=== PATIENT | female | born 1965 | race Caucasian/White ===

== ENCOUNTER 2017-12-24 16:25 | Emergency (ER) | payer SELFPAY ==
[2017-12-24] MEDS ORDERED: IBUPROFEN 400 MG TAB ONE (16:57)
--- NOTE | 2017-12-24 17:42 | ER ---
Nurse's Notes [facility] Name: Justine Wolf Age: 52 yrs Sex: Female : 1965 Arrival Date: 12/24/2017 Time: 16:31 Bed 15 Private MD: Diagnosis: Pain in unspecified foot-Right s/p fall Presentation: 12/24 16:31 Presenting complaint: Patient states: yesterday evening i rolled my R ankle and i fell; hj denies hitting head; took Motrin and Tylenol; last dose 7am; reports tingling on my R [place] area;. Transition of care: patient was not received from another setting of care. Onset of symptoms was December 24, 2017. Risk Assessment: Do you want to hurt yourself or someone else? Patient reports no desire to harm self or others. Initial Sepsis Screen: Does the patient meet any 2 criteria? No. Patient's initial sepsis screen is negative. Does the patient have a suspected source of infection? No. Patient's initial sepsis screen is negative. Care prior to arrival: None. 16:31 Method Of Arrival: Ambulatory 16:31 Acuity: LATESHA 4 hj Triage Assessment: 16:34 General: Appears in no apparent distress. uncomfortable, Behavior is calm, cooperative, hj appropriate for age. Pain: Complains of pain in right leg Pain currently is 9 out of 10 on a pain scale. OPTICIAN: 16:35 LMP N/A - Post-menopause hj Historical: - Allergies: 16:34 Codeine; hj - Home Meds: 16:34 None [Active]; hj - PMHx: 16:34 None; hj - PSHx: 16:34 Knee surgery; hj - Immunization history:: Adult Immunizations up to date. - Social history:: Smoking status: Patient uses tobacco products, smokes one-half pack cigarettes per day, Patient/guardian denies using alcohol. - Ebola Screening: : Patient negative for fever greater than or equal to 101.5 degrees Fahrenheit, and additional compatible Ebola Virus Disease symptoms Patient denies exposure to infectious person Patient denies travel to an Ebola-affected area in the 21 days before illness onset. Screenin:35 Abuse screen: Denies threats or abuse. Denies injuries from another. Nutritional hj screening: No deficits noted. Tuberculosis screening: No symptoms or risk factors identified. Fall Risk None identified. Assessment: 16:40 General: Appears in no apparent distress. Behavior is calm, cooperative, appropriate tw2 for age. Pain: Complains of pain in right ankle and anterior aspect of right ankle. Neuro: Level of Consciousness is awake, alert, obeys commands, Oriented to person, place, time, situation. Cardiovascular: Denies chest pain, shortness of breath, Patient's skin is warm and dry. Respiratory: Airway is patent Respiratory effort is even, unlabored, Respiratory pattern is regular, symmetrical. GI: No signs and/or symptoms were reported involving the gastrointestinal system. : EENT: No signs and/or symptoms were reported regarding the EENT system. Derm: Skin is intact, is healthy with good turgor, Skin temperature is warm. Musculoskeletal: Circulation, motion, and sensation intact. 17:27 Reassessment: Xray at bedside. sv 17:29 Reassessment: Patient appears in no apparent distress at this time. No changes from tw2 previously documented assessment. Patient and/or family updated on plan of care and expected duration. Pain level reassessed. Patient is alert, oriented x 3, equal unlabored respirations, skin warm/dry/pink. Vital Signs: 16:35 BP 123 / 81; Pulse 89; Resp 18; Temp 98.3(O); Pulse Ox 100% on R/A; Weight 63.5 kg; hj Height 5 ft. 9 in. (175.26 cm); Pain 9/10; 17:32 BP 113 / 69; Pulse 66; Resp 17; Pulse Ox 100% on R/A; tw2 16:35 Body Mass Index 20.67 (63.50 kg, 175.26 cm) ED Course: 16:31 Patient arrived in ED. hj 16:33 Triage completed. hj 16:35 Arm band placed on left wrist. hj 16:39 John Rene, RN is Primary Nurse. jl7 16:40 Roxana Fan, JEFF is Primary Nurse. tw2 16:40 Neo Hodgson PA is PHCP. cp 16:40 Neo Cartagena MD is Attending Physician. cp 16:48 Bed in low position. Call light in reach. Pulse ox on. NIBP on. tw2 16:48 No provider procedures requiring assistance completed. tw2 17:30 X-ray completed. Portable x-ray completed in exam room. Patient tolerated procedure bb2 well. 17:30 XRAY Foot RIGHT 3 View In Process Unspecified. EDMS 17:35 Patient did not have IV access during this emergency room visit. Merlin wrap to right tw2 ankle. Administered Medications: 16:56 Drug: Ibuprofen 800 mg Route: PO; tw2 17:38 Follow up: Response: No adverse reaction tw2 Outcome: 17:42 Discharge ordered by MD. cp 17:46 Discharged to home via wheelchair. tw2 17:46 Condition: stable 17:46 Discharge instructions given to patient, Instructed on discharge instructions, follow up and referral plans. Demonstrated understanding of instructions, follow-up care, Prescriptions given X 1. 17:49 Patient left the ED. tw2 Signatures: Dispatcher [employer] Livia Cherry RN RN Jay Jay Chaparro RN RN Neo Liu, Roxana Ochoa cp, RN RN tw2 John Rene RN RN jl7 Elizabeth Freitas bb2
--- NOTE | 2017-12-24 17:42 | EDPHYS ---
Physician Documentation [facility] Name: Justine Wolf Age: 52 yrs Sex: Female : 1965 Arrival Date: 12/24/2017 Time: 16:31 Bed 15 Private MD: ED Physician Neo Cartagena HPI: 12/24 16:53 This 52 yrs old Female presents to ER via Ambulatory with complaints of R cp foot pain. 16:53 The patient presents with an injury, pain, that is acute. The complaints affect the cp right foot. Context: Mechanism of Injury: twisting the patient can partially bear weight. Onset: The symptoms/episode began/occurred yesterday. 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 - Social history:: Smoking status: Patient uses tobacco products, smokes one-half pack cigarettes per day, Patient/guardian denies using alcohol. - Ebola Screening: : Patient negative for fever greater than or equal to 101.5 degrees Fahrenheit, and additional compatible Ebola Virus Disease symptoms Patient denies exposure to infectious person Patient denies travel to an Ebola-affected area in the 21 days before illness onset. ROS: 17:00 MS/extremity: Positive for injury or acute deformity, pain, of the right foot, Negative cp for paresthesias. 17:00 Constitutional: Negative for body aches, chills, fever, poor PO intake. 17:00 All other systems are negative. Exam: 17:05 Constitutional: The patient appears in no acute distress, alert, awake, cp non-diaphoretic, well developed, well nourished. 17:05 Head/Face: Normocephalic, atraumatic. cp 17:05 Eyes: Periorbital structures: appear normal, Conjunctiva: normal, no exudate, no injection, Lids and lashes: appear normal, bilaterally. 17:05 ENT: External ear(s): are unremarkable, Nose: is normal, Mouth: is normal, Posterior pharynx: is normal, airway is patent. 17:05 Chest/axilla: Inspection: normal. 17:05 Cardiovascular: Rate: normal, Rhythm: regular. 17:05 Respiratory: the patient does not display signs of respiratory distress, Respirations: normal, no use of accessory muscles, no retractions, no splinting, no tachypnea, labored breathing, is not present. 17:05 Abdomen/GI: Exam negative for discomfort, distension, guarding, Inspection: abdomen appears normal. 17:05 Back: pain, is absent, ROM is normal. cp 17:05 Musculoskeletal/extremity: Extremities: grossly normal except: noted in the lateral mid foot: pain, tenderness, mild swelling, There is no evidence of deformity, Pulses: noted to be 2+ in the right dorsalis pedis artery, Sensation intact. 17:05 Musculoskeletal/extremity: Achilles tendon palpated and intact, no tenderness palpated at ankle or proximal fibula. 17:05 Skin: cellulitis, is not appreciated, no rash present. Vital Signs: 16:35 BP 123 / 81; Pulse 89; Resp 18; Temp 98.3(O); Pulse Ox 100% on R/A; Weight 63.5 kg; hj Height 5 ft. 9 in. (175.26 cm); Pain 9/10; 17:32 BP 113 / 69; Pulse 66; Resp 17; Pulse Ox 100% on R/A; tw2 16:35 Body Mass Index 20.67 (63.50 kg, 175.26 cm) hj MDM: 16:41 Patient medically screened. cp 17:40 Data reviewed: vital signs, nurses notes, radiologic studies, plain films. cp 17:40 Differential diagnosis: fracture, sprain, dislocation. Test interpretation: by ED cp physician or midlevel provider: plain radiologic studies. Counseling: I had a detailed discussion with the patient and/or guardian regarding: the historical points, exam findings, and any diagnostic results supporting the discharge/admit diagnosis, radiology results, to return to the emergency department if symptoms worsen or persist or if there are any questions or concerns that arise at home. 12/24 16:53 Order name: XRAY Foot RIGHT 3 View; Complete Time: 17:44 cp 12/24 17:44 Interpretation: Report reviewed. 12/24 17:34 Order name: Merlin Wrap; Complete Time: 17:37 cp Administered Medications: 16:56 Drug: Ibuprofen 800 mg Route: PO; tw2 17:38 Follow up: Response: No adverse reaction tw2 Disposition: 18:00 Chart complete. cp 12/25 06:53 Co-signature as Attending Physician, Neo Cartagena MD I agree with the assessment and [facility] plan of care. Disposition: 12/24/17 17:42 Discharged to Home. Impression: Pain in unspecified foot - Right s/p fall. - Condition is Stable. - Discharge Instructions: Foot Sprain. - Prescriptions for Naprosyn 500 mg Oral Tablet - take 1 tablet by ORAL route 2 times per day take with food; 20 tablet. - Work release form, Medication Reconciliation Form, Thank You Letter, Antibiotic Education, Prescription Opioid Use form. - Follow up: Private Physician; When: 5 - 6 days; Reason: Recheck today's complaints. - Problem is new. - Symptoms have improved. Signatures: Dispatcher [employer] Neo Ennis MD MD cha Joaquin, Henry, RN RN Neo Hodgson PA PA cp Wise, Tara RN RN tw2 Corrections: (The following items were deleted from the chart) 12/24 17:37 17:35 Crutches ordered. cp tw2 17:37 17:35 Ortho shoe ordered. cp tw2 17:49 17:42 12/24/2017 17:42 Discharged to Home. Impression: Pain in unspecified foot - Right tw2 s/p fall. Condition is Stable. Forms are Work release form, Medication Reconciliation Form, Thank You Letter, Antibiotic Education, Prescription Opioid Use. Follow up: Private Physician; When: 5 - 6 days; Reason: Recheck today's complaints. Problem is new. Symptoms have improved. cp
--- NOTE | 2017-12-24 17:43 | RAD REPORT ---
EXAM DESCRIPTION: RAD - Foot Right 3 View - 12/24/2017 5:33 pm CLINICAL HISTORY: Ankle and foot pain, twisting injury COMPARISON: September 2010 FINDINGS: No fracture, dislocation or periosteal reaction. Faint lucent line in the cuboid bone seen only on the lateral view is unlikely to be fracture. No acute or destructive bone process. No air or foreign body in the soft tissues. IMPRESSION: No fracture confirmed on this study. Faint lucent line in the cuboid bone is seen on onl y one view. Acute fracture is doubtful. Follow-up imaging in 7 days could be performed if the patient has continued symptoms concerning for f racture.
== END 2017-12-24 17:49 | disposition home or self-care (01) ==
LOC: ER 16:25
DX: M79.671 Pain in right foot (principal); Z88.6 Allergy status to analgesic agent; F17.210 Nicotine dependence, cigarettes, uncomplicated
CPT/HCPCS: 99284

== ENCOUNTER 2025-04-16 19:43 | Emergency (ER) | payer OTHER ==
--- OUTSIDE RECORDS SUMMARY | 2025-04-16 19:48 | XMS REPORT | Continuity of Care Document ---
Author Name Unknown Address [address] [facility] [address] [place] [address] [facility] Address [address] [facility] [address] [place] [address] Care Team Providers Care Car Rider Name Role Phone Bertha Garcia Primary Care Physician Casper Suazo Attending Clinician Unavailable SHAKEEL MONGE Attending Clinician Unava SARAH Agosto Attending Clinician Unavailable SHAKEEL MONGE Attending Clinician Unava ilZULEMA Vinson Attending Clinician Unava ilmary kay MOORE_TFCLLC_Anthony_Waldo Attending Clinician UnavailSARAH Mott Attending Clinician Unavailable HUMZA BEJARANO Attending Clinician Unavailable KG TATE Attending Clinician Unav ailRichelle Vail Attending Clinician [phone] Denia Ortega MA Attending Clinician William Palm MD, Provider Not In Attending Clinician U Placido Choi MA Attending Clinician Unavailable Zulema Botello MD Attending Clinician DAJA EARL Attending Clinician William flowers [email or web address] Admitting Clinician SARAH Le Admitting Clinician Unavailable SARAH AMOS Admitting Clinician Unavailable Payers Payer Name Policy Type Policy Number Effective Date Expirati on Date Source [facility] PL[facility] CHIP [id number] 2020 00:00:00 2021 00:00:00 [facility] PL[facility] STAR [id number] 2021 00:00:00 [facility] [id number] 2023 00:00:00 [facility] [place]MED[place]PLAC[place] [id number] Problems Condition Name Condition Details Condition Category Status Onset Date Resolution Date Last Treatment Date Treating Clinician Comments Source Acquired nasal septal defect (disorder) Acquired nasal septal defect (disorder) Active 03/02/2023 Diagnosis 03/09/2023 [facility] Diagnosis Active 8 00:00: 00 2023-03-09 23:38:21 Cathy Wang OPEN WOUND INVOLVING HEAD WITH NECK, COM OPEN WOUND INVOLVING HEAD WITH NECK, COM Active 02/08/2023 [facility] Diagnosis Active 8- 00:00: 00 2023-03-08 13:21:00 Cathy Wang Herpes zoster Herpes Zoster Problem Active 4- 00:00: 00 [facility] Acute bronchitis Acute Bronchitis Problem Active 4-12 00:00: 00 [facility] Allergic rhinitis Allergic Rhinitis Problem Active 4-12 00:00: 00 [facility] Non-bullou s impetigo Non-bullou s Impetigo Problem Active 4-12 00:00: 00 [facility] Medication monitoring Medication Monitoring Problem Active 4-12 00:00: 00 [facility] Cellulitis of left lower eyelid Cellulitis of Left Lower Eyelid Problem Active 4-12 00:00: 00 [facility] Nasal obstructio n Nasal obstructio n Disease Active 1-19 00:00: 00 [facility] Muscular atrophy Muscular atrophy Disease Active 9-08 00:00: 00 [facility] Open wound of nose without complicati on Open wound of nose without complicati on Disease Active 4-07 00:00: 00 [facility] Contusion of rib Contusion of Rib Problem Active 2-22 00:00: 00 [facility] 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) Active Problem 03/09/2023 [facility] Problem Active 2023-03-09 23:38:21 Cathy Wang 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) Active Problem 03/09/2023 [facility] Problem Active 2023-03-09 23:38:21 Cathy Wang [id number] History of SCC (squamous cell carcinoma) of skin Problem [facility] [id number] Mixed hyperlipid emia Problem [facility] [id number] Smoker Problem [facility] [id number] Mood disorder Problem [facility] History of Past Illness Condition Name Condition Details Condition Category Status Onset Date Resolution Date Last Treatment Date Treating Clinician Comments Source Malignant neoplasm of skin of face (disorder) Malignant neoplasm of skin of face (disorder) 03/02/2023 Diagnosis 03/09/2023 [facility] Diagnosis 2022-0 8-25 17:39: 00 2023-03-09 23:38:21 2023-03-09 23:38:21 Cathy Wang Disease of the nose (disorder) Disease of the nose (disorder) 03/02/2023 Diagnosis 03/09/2023 [facility] Diagnosis 2022-0 8-25 17:39: 00 2023-03-09 23:38:21 2023-03-09 23:38:21 Cathy Wang Allergies, Adverse Reactions, Alerts Allergy Name Allergy Type Status Severity Reaction(s) Onset Date Inactive Date Treating Clinician Comments Source Penicill in G Allergy to substanc e Active 9-30 00:00: 00 [facility] hydrocod one hydrocod one Active Unknown [facility] codeine codeine Active [facility] Social History Social Habit Start Date Stop Date Quantity Comments Source History of Tobacco Use Current Smoker [facility] Sex Assigned At [facility] History SDOH Alcohol Std Drinks [facility] History SDOH Alcohol Binge [facility] History SDOH Alcohol Comment [facility] Sexual orientation [facility] History of Social function 2023-06-14 00:00:00 2023-06-14 00:00:00 [facility] Exposure to SARS-CoV-2 (event) 2022-09-08 00:00:00 2022-09-18 11:38:00 Not sure [facility] Cigarette pack-years 2021-12-15 00:00:00 2021-12-15 00:00:00 [facility] Tobacco use and exposure 2021-12-15 00:00:00 2021-12-15 00:00:00 Smokeless tobacco non-user [facility] Alcohol intake 2021-05-19 00:00:00 2021-05-19 00:00:00 Lifetime non-drinker (finding) [facility] History SDOH Alcohol Frequency 2021-04-18 00:00:00 2021-04-18 00:00:00 1 [facility] Smoking Status Start Date Stop Date Source Current Smoker 2025-01-20 00:00:00 [facility] Tobacco smoking status 2023-02-16 16:07:47 2023-02-16 16:07:47 [facility] Medications Ordered Medication Name Filled Medication Name Start Date Stop Date Current Medication? Ordering Clinician Indication Dosage Frequency Signature (SIG) Comments Components Source DULoxetine HCl 30 MG DULoxetine HCl 30 MG 01-20 00:00: 00 No 1{capsu le} QD DULoxetine HCl 30 MG traZODone HCl 50 MG traZODone HCl 50 MG 3-13 00:00: 00 No 1{table t_at_be dtime_a s_neede d} QD traZODone HCl 50 MG ibuprofen 800 MG tablet 2022-07 13:36: 18 Yes 800mg Q6H Take 800 mg by mouth every 6 (six) hours if needed for mild pain. [facility] pentoxifyll ine (Trental) 400 MG ER tablet 03-15 00:00: 00 03-21 04:59 :00 No [id number] 400mg Take 1 tablet (400 mg total) by mouth in the morning and 1 tablet (400 mg total) at noon and 1 tablet (400 mg total) in the evening. Take with meals. Do all this for 5 days. Do not crush, chew, or split.. [facility] buPROPion SR (Wellbutrin SR) 100 MG 12 hr tablet 2021-07 00:00: 00 03-19 00:00 :00 No [facility] diphenhydrA MINE (BENADryl) 25 MG tablet 02-09 09:42: 13 Yes Take by mouth. [facility] acetaminoph en (Tylenol) 500 MG tablet 02-09 09:42: 13 Yes Q6H Take by mouth every 6 (six) hours if needed for mild pain. [facility] pseudoephed rine (Sudafed) 60 MG tablet 02-09 09:40: 55 02-09 00:00 :00 No 60mg Take 60 mg by mouth every 4 (four) hours if needed for congestion . [facility] pseudoephed rine (Sudafed) 60 MG tablet 12-15 10:08: 51 Yes 60mg Take 60 mg by mouth every 4 (four) hours if needed for congestion . [facility] acetaminoph en-codeine (Tylenol w/ Codeine #4) 300-60 MG tablet 10-13 09:53: 35 10-13 00:00 :00 No Take by mouth. [facility] naproxen (Naprosyn) 500 MG tablet 08-29 11:32: 41 08-29 00:00 :00 No 500mg Take 500 mg by mouth 2 (two) times a day with meals. [facility] buPROPion (Wellbutrin ) 100 MG tablet 08-29 11:32: 28 08-29 00:00 :00 No Q.5D Take by mouth 2 (two) times a day. [facility] buPROPion (Wellbutrin ) 100 MG tablet 2020-07 10:19: 18 Yes Q.5D Take by mouth 2 (two) times a day. [facility] naproxen (Naprosyn) 500 MG tablet 2020-07 10:19: 18 Yes 500mg Take 500 mg by mouth 2 (two) times a day with meals. [facility] acetaminoph en-codeine (Tylenol w/ Codeine #4) 300-60 MG tablet 2020-07 10:19: 17 Yes Take by mouth. [facility] buPROPion (Wellbutrin ) 100 MG tablet 2020-07 13:29: 32 Yes Q.5D Take by mouth 2 (two) times a day. [facility] naproxen (Naprosyn) 500 MG tablet 2020-07 13:29: 32 Yes 500mg Take 500 mg by mouth 2 (two) times a day with meals. [facility] bacitracin 500 UNIT/GM ointment 2020-07 0 00:00: 00 08-29 00:00 :00 No [id number] Q.5D Apply topically 2 (two) times a day. [facility] No known medications 04-07 13:29: 19 No No known medication s [facility] mupirocin (Bactroban Nasal) 2 % nasal ointment 04-07 00:00: 00 04-15 04:59 :00 No [id number] Q.5D Apply to each nostril 2 (two) times a day for 7 days. Use one-half of tube in each nostril twice daily for five (5) days. After applicatio n, press sides of nose together and gently massage. [facility] acetaminoph en 325 mg tablet TAKE 2 TABLETS BY MOUTH EVERY 4 HOURS NEEDED FOR PAIN FOR 10 DAYS acetaminoph en 325 mg tablet TAKE 2 TABLETS BY MOUTH EVERY 4 HOURS NEEDED FOR PAIN FOR 10 DAYS No acetaminop hen 325 mg tablet TAKE 2 TABLETS BY MOUTH EVERY 4 HOURS NEEDED FOR PAIN FOR 10 DAYS [facility] amoxicillin 500 mg capsule TAKE 1 CAPSULE BY MOUTH THREE TIMES DAILY FOR 15 DAYS amoxicillin 500 mg capsule TAKE 1 CAPSULE BY MOUTH THREE TIMES DAILY FOR 15 DAYS No amoxicilli n 500 mg capsule TAKE 1 CAPSULE BY MOUTH THREE TIMES DAILY FOR 15 DAYS [facility] cephalexin 500 mg capsule TAKE 1 CAPSULE BY MOUTH TWICE DAILY FOR 14 DAYS cephalexin 500 mg capsule TAKE 1 CAPSULE BY MOUTH TWICE DAILY FOR 14 DAYS No cephalexin 500 mg capsule TAKE 1 CAPSULE BY MOUTH TWICE DAILY FOR 14 DAYS [facility] fluticasone propionate 50 mcg/actuati on nasal spray,suspe nsion USE ONE SPRAY IN EACH NOSTRIL ONCE A DAY fluticasone propionate 50 mcg/actuati on nasal spray,suspe nsion USE ONE SPRAY IN EACH NOSTRIL ONCE A DAY No fluticason e propionate 50 mcg/actuat ion nasal spray,susp ension USE ONE SPRAY IN EACH NOSTRIL ONCE A DAY [facility] gabapentin 100 mg capsule gabapentin 100 mg capsule No gabapentin 100 mg capsule [facility] hydrocodone 7.5 mg-acetamin ophen 325 mg tablet TAKE 1 TABLET BY MOUTH EVERY 6 HOURS FOR 15 DAYS NEEDED FOR PAIN hydrocodone 7.5 mg-acetamin ophen 325 mg tablet TAKE 1 TABLET BY MOUTH EVERY 6 HOURS FOR 15 DAYS NEEDED FOR PAIN No hydrocodon e 7.5 mg-acetami nophen 325 mg tablet TAKE 1 TABLET BY MOUTH EVERY 6 HOURS FOR 15 DAYS NEEDED FOR PAIN [facility] hydroxyzine HCl 25 mg tablet TAKE 1 TABLET BY MOUTH THREE TIMES DAILY hydroxyzine HCl 25 mg tablet TAKE 1 TABLET BY MOUTH THREE TIMES DAILY No hydroxyzin e HCl 25 mg tablet TAKE 1 TABLET BY MOUTH THREE TIMES DAILY [facility] lidocaine 4 % topical patch Apply 1 patch every 12 hours by topical route as needed. lidocaine 4 % topical patch Apply 1 patch every 12 hours by topical route as needed. No 1patch( es) Q12H lidocaine 4 % topical patch Apply 1 patch every 12 hours by topical route as needed. [facility] naproxen 500 mg tablet,shayne yed release TAKE ONE TABLET TWICE DAILY NEEDED FOR PAIN naproxen 500 mg tablet,shayne yed release TAKE ONE TABLET TWICE DAILY NEEDED FOR PAIN No naproxen 500 mg tablet,del ayed release TAKE ONE TABLET TWICE DAILY NEEDED FOR PAIN [facility] SSD 1 % topical cream APPLY TOPICALLY TO THE AFFECTED AREA THREE TIMES DAILY SSD 1 % topical cream APPLY TOPICALLY TO THE AFFECTED AREA THREE TIMES DAILY No SSD 1 % topical cream APPLY TOPICALLY TO THE AFFECTED AREA THREE TIMES DAILY [facility] acetaminoph en 325 mg tablet TAKE 2 TABLETS BY MOUTH EVERY 4 HOURS NEEDED FOR PAIN FOR 10 DAYS acetaminoph en 325 mg tablet TAKE 2 TABLETS BY MOUTH EVERY 4 HOURS NEEDED FOR PAIN FOR 10 DAYS No acetaminop hen 325 mg tablet TAKE 2 TABLETS BY MOUTH EVERY 4 HOURS NEEDED FOR PAIN FOR 10 DAYS [facility] amoxicillin 500 mg capsule TAKE 1 CAPSULE BY MOUTH THREE TIMES DAILY FOR 15 DAYS amoxicillin 500 mg capsule TAKE 1 CAPSULE BY MOUTH THREE TIMES DAILY FOR 15 DAYS No amoxicilli n 500 mg capsule TAKE 1 CAPSULE BY MOUTH THREE TIMES DAILY FOR 15 DAYS [facility] Augmentin 875 mg-125 mg tablet Take 1 tablet every 12 hours by oral route for 10 days. Augmentin 875 mg-125 mg tablet Take 1 tablet every 12 hours by oral route for 10 days. No 1 Q12H Augmentin 875 mg-125 mg tablet Take 1 tablet every 12 hours by oral route for 10 days. [facility] benzonatate 200 mg capsule Take 1 capsule 3 times a day by oral route for 5 days. benzonatate 200 mg capsule Take 1 capsule 3 times a day by oral route for 5 days. No 1capsul e(s) TID benzonatat e 200 mg capsule Take 1 capsule 3 times a day by oral route for 5 days. [facility] cephalexin 500 mg capsule TAKE 1 CAPSULE BY MOUTH TWICE DAILY FOR 14 DAYS cephalexin 500 mg capsule TAKE 1 CAPSULE BY MOUTH TWICE DAILY FOR 14 DAYS No cephalexin 500 mg capsule TAKE 1 CAPSULE BY MOUTH TWICE DAILY FOR 14 DAYS [facility] diclofenac potassium 50 mg tablet TAKE 1 TABLET BY MOUTH THREE TIMES DAILY diclofenac potassium 50 mg tablet TAKE 1 TABLET BY MOUTH THREE TIMES DAILY No diclofenac potassium 50 mg tablet TAKE 1 TABLET BY MOUTH THREE TIMES DAILY [facility] fluticasone propionate 50 mcg/actuati on nasal spray,suspe nsion [facility] 2 sprays every day by intranasal route. fluticasone propionate 50 mcg/actuati on nasal spray,suspe nsion [facility] 2 sprays every day by intranasal route. No 2spray( s) Q1D fluticason e propionate 50 mcg/actuat ion nasal spray,susp ension [facility] 2 sprays every day by intranasal route. [facility] gabapentin 100 mg capsule gabapentin 100 mg capsule No gabapentin 100 mg capsule [facility] hydrocodone 5 mg-acetamin ophen 325 mg tablet TAKE 1 TABLET BY MOUTH EVERY 6 HOURS FOR UP TO 5 DAYS NEEDED FOR SEVERE PAIN hydrocodone 5 mg-acetamin ophen 325 mg tablet TAKE 1 TABLET BY MOUTH EVERY 6 HOURS FOR UP TO 5 DAYS NEEDED FOR SEVERE PAIN No hydrocodon e 5 mg-acetami nophen 325 mg tablet TAKE 1 TABLET BY MOUTH EVERY 6 HOURS FOR UP TO 5 DAYS NEEDED FOR SEVERE PAIN [facility] hydrocodone 7.5 mg-acetamin ophen 325 mg tablet TAKE 1 TABLET BY MOUTH EVERY 6 HOURS FOR 15 DAYS NEEDED FOR PAIN hydrocodone 7.5 mg-acetamin ophen 325 mg tablet TAKE 1 TABLET BY MOUTH EVERY 6 HOURS FOR 15 DAYS NEEDED FOR PAIN No hydrocodon e 7.5 mg-acetami nophen 325 mg tablet TAKE 1 TABLET BY MOUTH EVERY 6 HOURS FOR 15 DAYS NEEDED FOR PAIN [facility] hydroxyzine HCl 25 mg tablet TAKE 1 TABLET BY MOUTH THREE TIMES DAILY hydroxyzine HCl 25 mg tablet TAKE 1 TABLET BY MOUTH THREE TIMES DAILY No hydroxyzin e HCl 25 mg tablet TAKE 1 TABLET BY MOUTH THREE TIMES DAILY [facility] levofloxaci n 500 mg tablet levofloxaci n 500 mg tablet No levofloxac in 500 mg tablet [facility] lidocaine 4 % topical patch Apply 1 patch every 12 hours by topical route as needed. lidocaine 4 % topical patch Apply 1 patch every 12 hours by topical route as needed. No 1patch( es) Q12H lidocaine 4 % topical patch Apply 1 patch every 12 hours by topical route as needed. [facility] Medrol (Yamil) 4 mg tablets in a dose pack Take as directed on pack Medrol (Yamil) 4 mg tablets in a dose pack Take as directed on pack No Medrol (Yamil) 4 mg tablets in a dose pack Take as directed on pack [facility] mupirocin 2 % topical ointment APPLY A SMALL AMOUNT TO RASH ON SCAR AND HAIRLINE AREA BY TOPICAL ROUTE 3 TIMES PER DAY mupirocin 2 % topical ointment APPLY A SMALL AMOUNT TO RASH ON SCAR AND HAIRLINE AREA BY TOPICAL ROUTE 3 TIMES PER DAY No mupirocin 2 % topical ointment APPLY A SMALL AMOUNT TO RASH ON SCAR AND HAIRLINE AREA BY TOPICAL ROUTE 3 TIMES PER DAY [facility] naproxen 500 mg tablet,shayne yed release TAKE ONE TABLET TWICE DAILY NEEDED FOR PAIN naproxen 500 mg tablet,shayne yed release TAKE ONE TABLET TWICE DAILY NEEDED FOR PAIN No naproxen 500 mg tablet,del ayed release TAKE ONE TABLET TWICE DAILY NEEDED FOR PAIN [facility] SSD 1 % topical cream APPLY TOPICALLY TO THE AFFECTED AREA THREE TIMES DAILY SSD 1 % topical cream APPLY TOPICALLY TO THE AFFECTED AREA THREE TIMES DAILY No SSD 1 % topical cream APPLY TOPICALLY TO THE AFFECTED AREA THREE TIMES DAILY [facility] sulfamethox azole 800 mg-trimetho prim 160 mg tablet TAKE 1 TABLET BY MOUTH TWICE DAILY sulfamethox azole 800 mg-trimetho prim 160 mg tablet TAKE 1 TABLET BY MOUTH TWICE DAILY No sulfametho xazole 800 mg-trimeth oprim 160 mg tablet TAKE 1 TABLET BY MOUTH TWICE DAILY [facility] valacyclovi r 1 gram tablet Take 1 tablet every 8 hours by oral route for 7 days. valacyclovi r 1 gram tablet Take 1 tablet every 8 hours by oral route for 7 days. No 1 Q8H valacyclov ir 1 gram tablet Take 1 tablet every 8 hours by oral route for [address] [facility] Immunizations Ordered Immunization Name Filled Immunization Name Date Status Comments Source Prevnar 20 (PCV20) Prevnar 20 (PCV20) Unknown Completed [facility] Vital Signs Vital Name Observation Time Observation Value Comments S [facility] height 2025-01-20 16:30:00 69 [in_i] Commo n [facility] weight 2025-01-20 16:30:00 129 [lb_av] Comm on [facility] temperature 2025-01-20 16:30:00 97.6 [degF] Com [facility] bmi 2025-01-20 16:30:00 19.05 kg/m2 Comm on [facility] oximetry 2025-01-20 16:30:00 96 % Commo n [facility] respiratory rate 2025-01-20 16:30:00 16 /min [facility] blood pressure systolic 2025-01-20 16:30:00 124 mm[facility]Hg[facility] diastolic 2025-01-20 16:30:00 72 mm[Hg] [facility] height 2024-10-27 15:30:00 69 [in_i] Commo n [facility] weight 2024-10-27 15:30:00 130.8 [lb_av] Co mmon [facility] temperature 2024-10-27 15:30:00 97.2 [degF] Com mon [facility] bmi 2024-10-27 15:30:00 19.31 kg/m2 Comm on [facility] oximetry 2024-10-27 15:30:00 95 % Commo n [facility] blood pressure systolic 2024-10-27 15:30:00 94 mm[Hg] Common [facility] blood pressure diastolic 2024-10-27 15:30:00 47 mm[Hg] Common [facility] height 2024-09-18 15:00:00 69 [in_i] Commo n [facility] weight 2024-09-18 15:00:00 131 [lb_av] Comm on [facility] temperature 2024-09-18 15:00:00 97.9 [degF] Com mon [facility] bmi 2024-09-18 15:00:00 19.34 kg/m2 Comm on [facility] oximetry 2024-09-18 15:00:00 96 % Commo n [facility] blood pressure systolic 2024-09-18 15:00:00 96 mm[Hg] Common [facility] blood pressure diastolic 2024-09-18 15:00:00 49 mm[Hg] Common [facility] Body height 2023-06-14 20:47:00 [facility] Body weight 2023-06-14 20:47:00 58.968 [facility] BMI 2023-06-14 20:47:00 19.20 kg/m2 [facility] Body height 2023-05-14 19:33:00 175.3 cm [facility] Body weight 2023-05-14 19:33:00 58.968 [facility] BMI 2023-05-14 19:33:00 19.20 kg/m2 [facility] Body height 2023-03-29 20:21:00 175.3 cm [facility] Body weight 2023-03-29 20:21:00 58.968 [facility] BMI 2023-03-29 20:21:00 19.20 kg/m2 [facility] Body height 2023-03-19 20:11:00 175.3 cm [facility] Body weight 2023-03-19 20:11:00 58.968 [facility] BMI 2023-03-19 20:11:00 19.20 kg/m2 [facility] Body height 2023-03-15 19:51:00 175.3 cm [facility] Body weight 2023-03-15 19:51:00 58.968 [facility] BMI 2023-03-15 19:51:00 19.20 kg/m2 [facility] Body height 2023-02-08 15:51:00 175.3 cm [facility] Body weight 2023-02-08 15:51:00 58.968 [facility] BMI 2023-02-08 15:51:00 19.20 kg/m2 [facility] BP Diastolic 2022-10-18 00:00:00 70 mm[Hg] [facility] Height 2022-10-18 00:00:00 69 [in_i] [facility] BMI (Body Mass Index) 2022-10-18 00:00:00 18 kg/m2 [facility] BP Systolic 2022-10-18 00:00:00 144 mm[Hg] [facility] Body Weight 2022-10-18 00:00:00 1952 [oz_av] [facility] Body height 2022-10-05 15:51:00 175.3 [facility] Body weight 2022-10-05 15:51:00 57.153 [facility] BMI 2022-10-05 15:51:00 18.61 kg/m2 [facility] Body height 2022-09-21 18:51:00 167.6 cm [facility] Body weight 2022-09-21 18:51:00 57.153 [facility] BMI 2022-09-21 18:51:00 20.34 kg/m2 [facility] Body height 2022-09-07 16:15:00 175.3 cm [facility] Body weight 2022-09-07 16:15:00 57.153 [facility] BMI 2022-09-07 16:15:00 18.61 kg/m2 [facility] Body height 2022-07-27 15:33:00 175.3 cm [facility] Body weight 2022-07-27 15:33:00 56.246 [facility] BMI 2022-07-27 15:33:00 18.31 kg/m2 [facility] Body weight 2022-05-01 18:11:00 55.339 [facility] BMI 2022-05-01 18:11:00 18.02 kg/m2 [facility] Body height 2022-03-16 14:40:00 175.3 cm [facility] Body weight 2022-03-16 14:40:00 55.43 kg [facility] BMI 2022-03-16 14:40:00 18.05 kg/m2 [facility] Body height 2022-02-09 14:40:00 175.3 cm [facility] Body weight 2022-02-09 14:40:00 53.978 kg [facility] BMI 2022-02-09 14:40:00 17.57 kg/m2 [facility] Body height 2021-12-15 15:07:00 175.3 cm [facility] Body weight 2021-12-15 15:07:00 56.246 kg [facility] BMI 2021-12-15 15:07:00 18.31 kg/m2 [facility] Body height 2021-11-29 15:33:00 175.3 cm [facility] Body weight 2021-11-29 15:33:00 56.246 kg [facility] BMI 2021-11-29 15:33:00 18.31 kg/m2 [facility] Body height 2021-10-13 14:50:00 175.3 cm [facility] Body weight 2021-10-13 14:50:00 56.246 kg [facility] BMI 2021-10-13 14:50:00 18.31 kg/m2 [facility] BP Diastolic 2021-08-30 00:00:00 63 mm[Hg] [facility] Height 2021-08-30 00:00:00 69 [in_i] [facility] BMI (Body Mass Index) 2021-08-30 00:00:00 18.4 kg/m2 [facility] BP Systolic 2021-08-30 00:00:00 126 mm[Hg] [facility] Body Weight 2021-08-30 00:00:00 1992 [oz_av] [facility] Body height 2021-05-19 16:17:00 175.3 cm [facility] Body weight 2021-05-19 16:17:00 60.328 kg [facility] BMI 2021-05-19 16:17:00 19.64 kg/m2 [facility] Body height 2021-04-18 18:28:00 175.3 cm [facility] Body weight 2021-04-18 18:28:00 58.514 [facility] BMI 2021-04-18 18:28:00 19.05 kg/m2 [facility] Height 2023-03-07 13:59:00 5 [ft_i] [facility] Weight 2023-03-07 13:59:00 [facility] BMI Calculated 2023-03-07 13:59:00 [facility] Heart Rate 2023-03-07 13:08:19 [facility] Temperature Oral (F) 2023-03-07 13:08:00 97.6 F [facility] Systolic (mm Hg) 2023-03-07 13:07:44 [facility] Diastolic (mm Hg) 2023-03-07 13:07:44 [facility] Weight 2023-02-16 16:11:00 [facility] Procedures Procedure Date / Time Performed Performing Clinicia n Source XR, ribs, unilateral, w/ PA chest 2021-08-30 00:00:00 [facility] SURGICAL PATHOLOGY 2021-05-16 19:20:00 Hayley Monge [facility] SURGICAL PATHOLOGY 2021-05-16 19:20:00 Hayley Monge [facility] Nasal Surgery 2021-05-14 00:00:00 [facility] TISSUE PATHOLOGY 2021-04-07 00:00:00 Zulema Botello [facility] TISSUE PATHOLOGY 2021-04-07 00:00:00 AyanZulema [facility] Procedure<sup>1</sup> Luis Alberto Scruggs Plan of Care Planned Activity Planned Date Details Comments Source Diagnostic Test Pending 2022-10-18 00:00:00 respiratory pathogens DNA and RNA panel, PCR, nasopharynx [code = respiratory pathogens DNA and RNA panel, PCR, nasopharynx] [facility] Encounters Start Date/Time End Date/Time Encounter Type Admission Type Attending Clinicians Care Facility Care Department Encounter ID Source 2024-09-18 14:20:01 Outpatient Casper Suazo [facility] [id number] [facility] 2023-03-29 14:49:36 Outpatient [facility] [id number] [facility] 2023-03-28 16:02:37 Outpatient [facility] [id number] [facility] 2023-03-19 09:18:05 Outpatient [facility] [id number] [facility] 2023-03-15 02:19:11 Outpatient [facility] [id number] [facility] 2023-03-09 02:18:58 Outpatient [facility] [id number] [facility] 2023-03-07 02:19:17 Outpatient [facility] [id number] [facility] 2023-03-06 09:31:12 Outpatient [facility] [id number] [facility] 2022-12-15 14:09:32 Outpatient [facility] [id number] [facility] 2022-09-11 14:12:59 Outpatient [facility] [id number] [facility] 2022-09-07 13:31:59 Outpatient [facility] [id number] [facility] 2022-08-24 08:40:27 Outpatient [facility] [id number] [facility] 2022-08-22 09:16:55 Outpatient [facility] [id number] [facility] 2022-08-14 11:27:31 Outpatient [facility] [id number] [facility] 2022-08-04 14:57:06 Outpatient [facility] [id number] [facility] 2022-07-31 09:15:18 Outpatient [facility] [id number] [facility] 2022-07-27 14:09:21 Outpatient [facility] [id number] [facility] 2022-06-20 15:26:33 Outpatient [facility] [id number] [facility] 2022-06-12 07:36:37 Outpatient [facility] [id number] [facility] 2022-05-25 09:52:19 Outpatient [facility] [id number] [facility] 2022-05-12 09:19:59 Outpatient [facility] [id number] [facility] 2022-04-28 12:57:46 Outpatient [facility] [id number] [facility] 2022-04-26 16:30:50 Outpatient [facility] [id number] [facility] 2021-08-24 13:10:14 Outpatient SHAKEEL MARTINEZ [facility] [id number] [facility] 2021-08-23 01:04:54 Outpatient SARAH AMOS [facility] [id number] [facility] 2021-06-22 14:42:35 Outpatient SHAKEEL MARTINEZ [facility] [id number] [facility] 2021-05-19 11:26:52 Outpatient SARAH AMOS [facility] [id number] [facility] 2021-05-17 12:42:14 Outpatient SHAKEEL MARTINEZ [facility] MHSE [id number] [facility] 2025-01-28 00:00:00 2025-01-28 00:00:00 (TEL) [facility] [id number] [facility] 2025-01-20 00:00:00 2025-01-20 00:00:00 OFFICE VISIT ESTAB PT LEVEL 4 [facility] [id number] [facility] 2024-10-27 00:00:00 2024-10-27 00:00:00 (WELLNESS) [facility] [id number] [facility] 2024-10-23 00:00:00 2024-10-23 00:00[facility] [id number] 2024-09-18 00:00:00 2024-09-18 00:00:00 OFFICE VISIT NEW PT LEVEL 4 [facility] [id number] [facility] 2023-09-13 10:15:00 2023-09-13 10:15:00 Outpatient SARAH AMOS [facility] [id number] [facility] 2023-09-08 13:22:00 2023-09-08 17:00:00 Emergency E ZULEMA PEAR[facility] [id number] [facility] 2023-06-14 15:00:00 2023-06-14 15:00:36 Office Visit Sarah Amos [address] 1.2.840.114 350.1.13.58 9.2.7.2.686 [id number] [facility] 2023-06-14 13:15:00 2023-06-14 13:15:00 Outpatient SARAH AMOS [facility] [id number] [facility] 2023-06-11 09:30:00 2023-06-11 09:30:00 Outpatient SARAH AMOS [facility] [id number] [facility] 2023-06-06 10:35:00 2023-06-06 10:35:00 Outpatient SARAH AMOS [facility] [id number] [facility] 2023-05-23 12:30:00 2023-05-23 12:30:00 Outpatient SARAH AMOS [facility] [id number] [facility] 2023-05-14 14:00:00 2023-05-14 14:08:06 Office Visit Sarah Amos [address] 1.2.840.114 350.1.13.58 9.2.7.2.686 [id number] [facility] 2023-05-14 10:30:00 2023-05-14 10:30:00 Outpatient SARAH AMOS [facility] [id number] [facility] 2023-03-29 15:00:00 2023-03-29 15:51:24 Office Visit Sarah Amos [address] 1.2.840.114 350.1.13.58 9.2.7.2.686 [id number] [facility] 2023-03-22 10:00:00 2023-03-22 10:00:00 Outpatient SARAH AMOS [facility] [id number] [facility] 2023-03-19 15:00:00 2023-03-19 15:19:53 Office Visit Sarah Amos [address] 1.2.840.114 350.1.13.58 9.2.7.2.686 [id number] [facility] 2023-03-15 15:00:00 2023-03-15 15:31:03 Office Visit Sarah Amos [address] 1.2.840.114 350.1.13.58 9.2.7.2.686 [id number] [facility] 2023-03-06 20:09:00 2023-03-07 15:05:00 [facility] [id number] [facility] 2023-03-06 15:09:00 2023-03-07 10:05:00 Outpatient SARAH AMOS [facility] [id number] [address] [place] [address] 2023-03-06 12:00:00 2023-03-06 12:00:00 Outpatient SARAH AMOS [facility] [id number] [facility] 2023-02-08 10:15:00 2023-02-08 11:49:46 Office Visit Sarah Amos [address] 1.2.840.114 350.1.13.58 9.2.7.2.686 [id number] [facility] 2023-01-04 10:15:00 2023-01-04 10:15:00 Outpatient SARAH AMOS [facility] [id number] [facility] 2022-12-24 18:31:00 2022-12-24 19:23:00 Emergency E DARCI, [id number] [facility] 2022-11-24 10:00:00 2022-11-24 10:00:00 Outpatient SHAKEEL MARTINEZ [facility] [id number] [facility] 2022-10-18 00:00:00 2022-10-18 00:00:00 Richelle Cruz MD: [address], [address], [place] [address] , Ph. [facility]_TFCLL[facility]P [facility] Office* [id number] [facility] 2022-10-05 10:30:00 2022-10-05 11:34:17 Office Visit Sarah Amos [address] 1.2.840.114 350.1.13.58 9.2.7.2.686 [id number] [facility] 2022-09-25 14:15:00 2022-09-25 14:15:00 Outpatient SARAH AMOS [facility] [id number] [facility] 2022-09-21 13:30:00 2022-09-21 14:23:23 Office Visit Sarah Amos [facility] [address] 1.2.840.114 350.1.13.58 9.2.7.2.686 [id number] [facility] 2022-09-12 05:06:00 2022-09-12 23:59:00 Outpatient SARAH AMOS [facility] [id number] [facility] 2022-09-12 08:00:00 2022-09-12 08:00:00 Outpatient SARAH AMOS [facility] [id number] [facility] 2022-09-07 10:00:00 2022-09-07 11:22:15 Office Visit Sarah Amos [address] 1.2.840.114 350.1.13.58 9.2.7.2.686 [id number] [facility] 2022-08-22 05:48:00 2022-08-22 23:59:00 Outpatient SARAH AMOS [facility] [id number] [facility] 2022-08-22 08:00:00 2022-08-22 08:00:00 Outpatient SARAH AMOS [facility] [id number] [facility] 2022-07-27 09:45:00 2022-07-27 10:39:39 Office Visit Sarah Amos [address] 1.2.840.114 350.1.13.58 9.2.7.2.686 [id number] [facility] 2022-06-12 13:15:00 2022-06-12 13:15:00 Outpatient SARAH AMOS [facility] [id number] [facility] 2022-05-26 09:30:00 2022-05-26 10:16:11 Outpatient DEMETRIUS BostonSHAKEEL [facility] [id number] [facility] 2022-05-01 13:00:00 2022-05-01 13:29:40 Office Visit Sarah Amos [address] 1.2.840.114 350.1.13.58 9.2.7.2.686 [id number] [facility] 2022-04-18 05:17:00 2022-04-18 23:59:00 Outpatient SARAH AMOS [facility] [id number] [facility] 2022-04-18 07:45:00 2022-04-18 07:45:00 Outpatient SARAH AMOS [facility] [id number] [facility] 2022-03-16 09:45:00 2022-03-16 10:16:30 Office Visit Sarah Amos [address] 1.2.840.114 350.1.13.58 9.2.7.2.686 [id number] [facility] 2022-02-16 14:00:00 2022-02-16 14:37:02 Office Visit Shakeel Martinez [facility] 1 1.2.840.114 350.1.13.58 9.2.7.2.686 [id number] [facility] 2022-02-16 11:00:00 2022-02-16 11:00:00 Outpatient SARAH AMOS [facility] [id number] [facility] 2022-02-09 09:30:00 2022-02-09 09:56:21 Office Visit Sarah Amos [address] 1.2.840.114 350.1.13.58 9.2.7.2.686 [id number] [facility] 2022-01-31 07:50:00 2022-01-31 23:59:00 Outpatient SARAH AMOS [facility] [id number] [facility] 2022-01-31 12:15:00 2022-01-31 12:15:00 Outpatient SARAH AMOS [facility] [id number] [facility] 2021-12-15 09:45:00 2021-12-15 10:24:10 Office Visit Sarah Amos [address] 1.2.840.114 350.1.13.58 9.2.7.2.686 [id number] [facility] 2021-11-29 10:45:00 2021-11-29 10:53:08 Office Visit Shakeel Martinez [facility] [address] 1.2.840.114 350.1.13.58 9.2.7.2.686 [id number] [facility] 2021-10-13 10:00:00 2021-10-13 10:15:43 Office Visit Sarah Amos [address] 1.2.840.114 350.1.13.58 9.2.7.2.686 [id number] [facility] 2021-10-06 10:40:00 2021-10-06 23:59:00 Outpatient KG TATE MHSE MHSE 8 [facility] 2021-08-11 11:53:00 2021-09-09 23:59:00 Outpatient KG TATE MHSE MHSE [id number] [facility] 2021-08-30 00:00:00 2021-08-30 00:00:00 Richelle Cruz MD: [address], [place] [address] , Ph. [facility] Office* [id number] [facility] 2021-08-30 00:00:00 2021-08-30 00:00:00 Outpatient Richelle Cruz [facility] [id number] 2021-08-24 13:00:00 2021-08-24 13:09:21 Office Visit Shakeel Martinez [facility] 1 1.2840.114 350.1.13.58 9.2.7.2.686 [id number] [facility] 2021-07-12 07:00:00 2021-08-10 23:59:00 Outpatient KG TATE MHSE MHSE [id number] [facility] 2021-08-04 00:00:00 2021-08-04 00:00:00 Telephone Denia Ortega Erica UTP [facility] 1 1.2840.114 350.1.13.58 9.2.7.2.686 [id number] [facility] 2021-07-14 10:00:00 2021-07-14 10:42:53 Office Visit Sarah Amos [address] 1.2840.114 350.1.13.58 9.2.7.2.686 [id number] [facility] 2021-07-07 12:22:00 2021-07-08 18:00:00 Outpatient AIMEE TATEORE MHSE MHSE [id number] [facility] 2021-06-28 14:00:00 2021-06-28 23:59:00 Outpatient MINGO TATEODORE MHSE MHSE [id number] [facility] 2021-06-23 14:00:00 2021-06-23 14:02:55 Office Visit SandsShakeel Wright [facility] 1 1.2.840.114 350.1.13.58 9.2.7.2.686 [id number] [facility] 2021-05-24 17:26:00 2021-05-30 12:05:00 Inpatient U SARAH AMOS [facility] [id number] [facility] 2021-05-30 00:00:00 2021-05-30 00:00:00 EXT MHH IP System, Provider Not In EXT MSRDP LOCATION 1.2.840.114 350.1.13.58 9.2.7.2.686 [id number] [facility] 2021-05-30 00:00:00 2021-05-30 00:00:00 EXT MHH IP System, Provider Not In EXT MSRDP LOCATION 1.2.840.114 350.1.13.58 9.2.7.2.686 [id number] [facility] 2021-05-23 10:38:00 2021-05-23 11:13:12 Office Visit Sarah Amos [facility] [address] 1.2.840.114 350.1.13.58 9.2.7.2.686 [id number] [facility] 2021-05-20 00:00:00 2021-05-20 00:00:00 Telephone RochaPlacido negrete RochaPlacido negrete [facility]TP [address] 1.2.840.114 350.1.13.58 9.2.7.2.686 [id number] [facility] 2021-05-19 10:12:33 2021-05-19 11:28:09 Office Visit Sarah Amos [facility] [address] 1.2.840.114 350.1.13.58 9.2.7.2.686 [id number] [facility] 2021-05-16 09:21:00 2021-05-16 17:05:00 Outpatient SHAKEEL MARTINEZBL MHBL [id number] [facility] 2021-05-16 12:10:31 2021-05-16 14:40:31 EXT MHH OP Shakeel Martinez EXT MSRDP LOCATION 1.2.840.114 350.1.13.58 9.2.7.2.686 [id number] [facility] 2021-05-16 12:10:31 2021-05-16 14:40:31 EXT [facility] OP SHAKEEL MARTINEZ EXT MSRDP LOCATION 1.2.840.114 350.1.13.58 9.2.7.2.686 [id number] [facility] 2021-05-03 00:00:00 2021-05-03 00:00:00 Telephone Shakeel Martinez [facility] 1 1.2.840.114 350.1.13.58 9.2.7.2.686 [id number] [facility] 2021-05-03 00:00:00 2021-05-03 00:00:00 Telephone Shakeel Martinez [facility] 1 1.2.840.114 350.1.13.58 9.2.7.2.686 [id number] [facility] 2021-04-20 00:00:00 2021-04-20 00:00:00 Telephone Shakeel Martinez [facility] 1 1.2.840.114 350.1.13.58 9.2.7.2.686 [id number] [facility] 2021-04-20 00:00:00 2021-04-20 00:00:00 Telephone Shakeel Martinez [facility] 1 1.2.840.114 350.1.13.58 9.2.7.2.686 [id number] [facility] 2021-04-19 00:00:00 2021-04-19 00:00:00 EXT [facility] OP Shakeel Martinez EXT MSRDP LOCATION 1.2.840.114 350.1.13.58 9.2.7.2.686 [id number] [facility] 2021-04-19 00:00:00 2021-04-19 00:00:00 EXT [facility] OP Shakeel Martinez EXT MSRDP LOCATION 1.2.840.114 350.1.13.58 9.2.7.2.686 [id number] [facility] 2021-04-18 13:24:33 2021-04-18 14:01:10 Office Visit Sarah Amos [facility] [address] 1.2.840.114 350.1.13.58 9.2.7.2.686 [id number] [facility] 2021-04-15 11:21:44 2021-04-15 12:28:31 Office Visit Shakeel Martinez [facility] 1 1.2.840.114 350.1.13.58 9.2.7.2.686 [id number] [facility] 2021-04-13 00:00:00 2021-04-13 00:00:00 Telephone Shakeel Martinez [facility] 1 1.2.840.114 350.1.13.58 9.2.7.2.686 [id number] [facility] 2021-04-12 00:00:00 2021-04-12 00:00:00 Orders Only Shakeel Martinez [facility] 1 1.2.840.114 350.1.13.58 9.2.7.2.686 [id number] [facility] 2021-04-07 10:57:48 2021-04-07 11:34:38 Office Visit Shakeel Martinez [facility] 1 1.2.840.114 350.1.13.58 9.2.7.2.686 [id number] [facility] 2021-04-07 00:00:00 2021-04-07 00:00:00 Orders Only Zulema Botello [facility] LOCATIONS 1.2.840.114 350.1.13.58 9.2.7.2.686 [id number] [facility] 2021-04-07 00:00:00 2021-04-07 00:00:00 Orders Only Zulema Botello [facility] LOCATIONS 1.2.840.114 350.1.13.58 9.2.7.2.686 [id number] [facility] 2021-04-07 00:00:00 2021-04-07 00:00:00 Telephone Demetrius boston Shakeel UTP 6400 [facility] 1.2.840.114 350.1.13.58 9.2.7.2.686 [id number] [facility] 2021-03-08 00:00:00 2021-03-08 03:39:00 Emergency E DAJA EARL SE MH 7[address] [facility] Results Test Description Test Time Test Comments Results Result Co [facility]ments [id number] 14:47:00* Test Item Value Reference Range Interpretation Comme nts Glucose Lvl (test code = Glucose Lvl) 87 70[id number] 19:20:00* Test Item Value Reference Range Interpretation Comme nts Diagnosis (test code = 4912662) 1. ?Inferior margin, excision ? ? ? -Negative for tumor 2. ?Left lip margin, excision ? ? ? -Negative for tumor 3. ?Left nasal skin margin, excision ? ? ? -Negative for tumor 4. ?Left nasal floor margin, excision ? ? ? -Negative for tumor 5. ?Left septal margin, excision ? ? ? -Negative for tumor 6. ?Left vestibule margin, excision ? ? ? -Negative for tumor 7. ?Right vestibule margin, excision ? ? ? -Negative for tumor 8. ?Right nasal sill, excision ? ? ? -Tissue loss during frozen section processing ? ? ? -Please see below for additional right nasal sill which was excised and submitted as ?specimen #13 9. ?Right nasal floor margin, excision ? ? ? -Negative for tumor 10. ?Right septal margin, excision ? ? ? -Negative for tumor 11. ?Right lip margin, excision ? ? ? -Negative for tumor 12. ?Right nasal floor #2, excision ? ? ? -Negative for tumor 13. ?Right nasal sill #2, excision ? ? ? -Negative for tumor 14. ?Nose and lip, wide local excision ? ? ? -INVASIVE SQUAMOUS CELL CARCINOMA, MODERATELY DIFFERENTIATEDExcision, NOSLip, NOSNasalSKINSection, NOSTHE CELLSquamous cell carcinoma, NOSLocal excision, NOSWide COMMENT (test code = 8606135) All margin specimens submitted for evaluation are negative for tumor. Specimen Source (test code = 3586567) 1. ?Inferior margin2. ?Left lip margin3. ?Left nasal skin margin4. ?Left nasal floor margin5. ?Left septal margin6. ?Left vestibule margin7. ?Right vestibule margin8. ?Right nasal sill9. ?Right nasal floor pxawud64. ?Right septum zovevs97. ?Right lip plvaei92. ?Right nasal floor #213. ?Right nasal sill #214. ?Nose and lip Clinical Information (test code = 9120398) Clinical History: Cancer of nose and lip, squamous cell carcinomaOperative Procedure: Wide local excision, nose and leftOperative Findings: Cancer nose and lip, squamous cell carcinoma Frozen Section Diagnosis (test code = 3248222) 1. ?Inferior margin (FS 1A): Negative 2. ?Left lip margin (FS 2A): Negative 3. ?Left nasal skin margin (FS 3A): Negative 4. ?Left nasal floor (FS 4A): Negative 5. ?Left septal margin (FS 5A): Negative 6. ?Left vestibule margin (FS 6A): Negative 7. ?Right vestibule margin (FS 7A): Negative 8. ?Right nasal sill: Lost in processing 9. ?Right nasal floor margin (FS 9A): Negative 10. ?Right septal margin (FS 10A): Negative 11. ?Right lip margin (FS 11A): Negative 12. ?Right nasal floor #2 (FS 12A): Negative 13. ?Right nasal sill #2 (FS 13A): Negative Reported to Dr. Wicho Vicente by Dr. Kim on 05/16/2021 at 3:45 PM. Gross Description (test code = 5066804) Specimen 1 received fresh for frozen section diagnosis labeled "inferior margin" is a 3.7 x 0.2 cm portion of skin and subcutaneous soft tissue. ?Ink code: Ritchie. ?The specimen is entirely submitted for frozen section diagnosis (FS 1A) with residual frozen section tissue in 1A. Specimen 2 ?received fresh for frozen section diagnosis labeled "left lip margin" is a 1.8 x 0.2 cm morrow-pink portion of skin and subcutaneous soft tissue. ?Ink code: Red. ?The specimen is entirely submitted for frozen section diagnosis (FS 2A) with residual frozen section tissue in 2A. Specimen 3 received fresh for frozen section diagnosis labeled "left nasal skin margin" is a triangular 0.8 x 0.2 cm portion of skin and subcutaneous soft tissue. ?Ink code: Green. ?The specimen is entirely submitted for frozen section diagnosis (FS 3A) with residual frozen section tissue in 3A. Specimen 4 received fresh for frozen section diagnosis labeled "left nasal floor margin" is a 0.3 x 0.2 x 0.2 cm portion of red-morrow to morrow-pink soft tissue. ?Ink code: Alison. ?The specimen is entirely submitted for frozen section diagnosis (FS 4A) with residual frozen section tissue in 4A. Specimen 5 received fresh for frozen section diagnosis labeled "left septal margin" is 2 red-morrow to morrow-pink soft tissues, 0.3 cm each. ?Ink code: Yellow. ?The specimen is entirely submitted for frozen section diagnosis (FS 5A) with residual frozen section tissue in 5A. Specimen 6 received fresh for frozen section diagnosis labeled "left vestibule margin" is a 0.3 x 0.2 x 0.2 cm morrow-pink soft tissue. ?Ink code: Blue. ?The specimen is entirely submitted for frozen section diagnosis (FS 6A) with residual frozen section tissue in 6A. Specimen 7 received fresh for frozen section diagnosis labeled "right vestibule margin" is a 1.1 x 0.3 x 0.3 cm morrow-pink to red-morrow soft tissue. ?Ink code: Black. ?The specimen is entirely submitted for frozen section diagnosis (FS 7A) with residual frozen section tissue in 7A. Specimen 8 received fresh for frozen section diagnosis labeled "right nasal sill" is a 0.5 x 0.3 x 0.3 cm red-morrow soft tissue. ?Ink code: Ritchie. ?The specimen is entirely submitted for frozen section diagnosis in 8A but is lost during frozen section processing. Specimen 9 received fresh for frozen section diagnosis labeled "right nasal floor margin" is a 0.4 x 0.4 x 0.3 cm red-morrow soft tissue. ?Ink code: Red. ?The specimen is entirely submitted for frozen section diagnosis (FS 9A) with residual frozen section tissue in 9A. Specimen 10 ?received fresh for frozen section diagnosis labeled "right septum margin" is a 0.4 x 0.4 x 0.3 cm red-morrow soft tissue with possible bone. ?Ink code: Green. ?The soft tissue is entirely submitted for frozen section diagnosis (FS 10A) with residual frozen section tissue in 10A. ?The remaining tissue to include bone submitted in 10B. Specimen 11 received fresh for frozen section diagnosis labeled "right lip margin" is a 1.2 x 0.3 x 0.3 cm portion of morrow-pink skin and subcutaneous soft tissue. ?Ink code: Alison. ?The specimen is entirely submitted for frozen section diagnosis (FS 11A) with residual frozen section tissue in 11A. Specimen 12 received fresh for frozen section diagnosis labeled "right nasal floor #2" is a 1.1 x 0.6 x 0.5 cm red-morrow to morrow-pink soft tissue. ?Ink code: Yellow. ?The specimen is entirely submitted for frozen section diagnosis (FS 12A) with residual frozen section tissue in 12A. Specimen 13 received fresh for frozen section diagnosis labeled "right nasal sill #2" is a 0.6 x 0.4 x 0.4 cm morrow-pink soft tissue. ?Ink code: Blue. ?The specimen is entirely submitted for frozen section diagnosis (FS 13A) with residual frozen section tissue in 13A. Specimen 14 "nose and lip" is an irregularly shaped excision of skin and subcutaneous soft tissue, 4.2 x 3.0 cm and excised to a depth of 0.5 cm. ?The specimen is oriented: Suture inferior. ?Ink code: Superior right-black, inferior right-blue, superior left-orange, inferior left-green, inner, inner aspect of the right margin-over inked red. The skin surface displays a red-morrow to white-morrow, ill-defined, exophytic and granular lesion, 3.0 x 2.0 x 0.3 cm. ?The lesion comes within 0.1 cm of the superior right, inferior right and superior left margins and comes within 1.0 cm of the inferior left margin. ?The lesion displays a white-morrow to morrow-pink, ill-defined cut surface with a depth of invasion of 1.0 cm and abuts the inferior right resection margin. The uninvolved skin is morrow-pink, wrinkled and hairbearing. ? The remaining cut surfaces are morrow-pink and homogenous with interspersed cartilage. The specimen is entirely submitted sequentially from right to left in 14A-14J. Also received is a detached portion of skin and subcutaneous soft tissue, 2.0 x 1.1 cm, excised to depth of 0.3 cm. ?The skin surface is morrow-pink, wrinkled and hairbearing. ?The surgical resection margin is inked black. ?Cut surfaces are morrow-pink, homogenous soft tissue with interspersed cartilage. ?This tissue is entirely submitted in 14K 14M with terminal and submitted in 14K. [facility] 11:23 Microscopic Description (test code = 8133510) A microscopic examination has been performed and the findings are incorporated in the diagnosis above. The positive and negative controls for all histochemical and immunohistochemical stains, if performed for this case, have been reviewed and, unless otherwise noted, have been found to be appropriate. Non Clinical Documentation (test code = 3353918) 09806 x 13, 44277 x 14 Specimen examined at [facility].Final diagnosis rendered at [facility].[address] [place], [place] ?[address] [facility] [id number] 19:20:00* Test Item Value Reference Range Interpretation Comme nts Diagnosis (test code = 4567038) 1. ?Inferior margin, excision ? ? ? -Negative for tumor 2. ?Left lip margin, excision ? ? ? -Negative for tumor 3. ?Left nasal skin margin, excision ? ? ? -Negative for tumor 4. ?Left nasal floor margin, excision ? ? ? -Negative for tumor 5. ?Left septal margin, excision ? ? ? -Negative for tumor 6. ?Left vestibule margin, excision ? ? ? -Negative for tumor 7. ?Right vestibule margin, excision ? ? ? -Negative for tumor 8. ?Right nasal sill, excision ? ? ? -Tissue loss during frozen section processing ? ? ? -Please see below for additional right nasal sill which was excised and submitted as ?specimen #13 9. ?Right nasal floor margin, excision ? ? ? -Negative for tumor 10. ?Right septal margin, excision ? ? ? -Negative for tumor 11. ?Right lip margin, excision ? ? ? -Negative for tumor 12. ?Right nasal floor #2, excision ? ? ? -Negative for tumor 13. ?Right nasal sill #2, excision ? ? ? -Negative for tumor 14. ?Nose and lip, wide local excision ? ? ? -INVASIVE SQUAMOUS CELL CARCINOMA, MODERATELY DIFFERENTIATEDExcision, NOSLip, NOSNasalSKINSection, NOSTHE CELLSquamous cell carcinoma, NOSLocal excision, NOSWide COMMENT (test code = 3916780) All margin specimens submitted for evaluation are negative for tumor. Specimen Source (test code = 3209876) 1. ?Inferior margin2. ?Left lip margin3. ?Left nasal skin margin4. ?Left nasal floor margin5. ?Left septal margin6. ?Left vestibule margin7. ?Right vestibule margin8. ?Right nasal sill9. ?Right nasal floor eaprqz46. ?Right septum iwpkqs30. ?Right lip kvomml82. ?Right nasal floor #213. ?Right nasal sill #214. ?Nose and lip Clinical Information (test code = 4275426) Clinical History: Cancer of nose and lip, squamous cell carcinomaOperative Procedure: Wide local excision, nose and leftOperative Findings: Cancer nose and lip, squamous cell carcinoma Frozen Section Diagnosis (test code = 0140848) 1. ?Inferior margin (FS 1A): Negative 2. ?Left lip margin (FS 2A): Negative 3. ?Left nasal skin margin (FS 3A): Negative 4. ?Left nasal floor (FS 4A): Negative 5. ?Left septal margin (FS 5A): Negative 6. ?Left vestibule margin (FS 6A): Negative 7. ?Right vestibule margin (FS 7A): Negative 8. ?Right nasal sill: Lost in processing 9. ?Right nasal floor margin (FS 9A): Negative 10. ?Right septal margin (FS 10A): Negative 11. ?Right lip margin (FS 11A): Negative 12. ?Right nasal floor #2 (FS 12A): Negative 13. ?Right nasal sill #2 (FS 13A): Negative Reported to Dr. Wicho Vicente by Dr. Kim on 05/16/2021 at 3:45 PM. Gross Description (test code = 5380741) Specimen 1 received fresh for frozen section diagnosis labeled "inferior margin" is a 3.7 x 0.2 cm portion of skin and subcutaneous soft tissue. ?Ink code: Ritchie. ?The specimen is entirely submitted for frozen section diagnosis (FS 1A) with residual frozen section tissue in 1A. Specimen 2 ?received fresh for frozen section diagnosis labeled "left lip margin" is a 1.8 x 0.2 cm morrow-pink portion of skin and subcutaneous soft tissue. ?Ink code: Red. ?The specimen is entirely submitted for frozen section diagnosis (FS 2A) with residual frozen section tissue in 2A. Specimen 3 received fresh for frozen section diagnosis labeled "left nasal skin margin" is a triangular 0.8 x 0.2 cm portion of skin and subcutaneous soft tissue. ?Ink code: Green. ?The specimen is entirely submitted for frozen section diagnosis (FS 3A) with residual frozen section tissue in 3A. Specimen 4 received fresh for frozen section diagnosis labeled "left nasal floor margin" is a 0.3 x 0.2 x 0.2 cm portion of red-morrow to morrow-pink soft tissue. ?Ink code: Alison. ?The specimen is entirely submitted for frozen section diagnosis (FS 4A) with residual frozen section tissue in 4A. Specimen 5 received fresh for frozen section diagnosis labeled "left septal margin" is 2 red-morrow to morrow-pink soft tissues, 0.3 cm each. ?Ink code: Yellow. ?The specimen is entirely submitted for frozen section diagnosis (FS 5A) with residual frozen section tissue in 5A. Specimen 6 received fresh for frozen section diagnosis labeled "left vestibule margin" is a 0.3 x 0.2 x 0.2 cm morrow-pink soft tissue. ?Ink code: Blue. ?The specimen is entirely submitted for frozen section diagnosis (FS 6A) with residual frozen section tissue in 6A. Specimen 7 received fresh for frozen section diagnosis labeled "right vestibule margin" is a 1.1 x 0.3 x 0.3 cm morrow-pink to red-morrow soft tissue. ?Ink code: Black. ?The specimen is entirely submitted for frozen section diagnosis (FS 7A) with residual frozen section tissue in 7A. Specimen 8 received fresh for frozen section diagnosis labeled "right nasal sill" is a 0.5 x 0.3 x 0.3 cm red-morrow soft tissue. ?Ink code: Ritchie. ?The specimen is entirely submitted for frozen section diagnosis in 8A but is lost during frozen section processing. Specimen 9 received fresh for frozen section diagnosis labeled "right nasal floor margin" is a 0.4 x 0.4 x 0.3 cm red-morrow soft tissue. ?Ink code: Red. ?The specimen is entirely submitted for frozen section diagnosis (FS 9A) with residual frozen section tissue in 9A. Specimen 10 ?received fresh for frozen section diagnosis labeled "right septum margin" is a 0.4 x 0.4 x 0.3 cm red-morrow soft tissue with possible bone. ?Ink code: Green. ?The soft tissue is entirely submitted for frozen section diagnosis (FS 10A) with residual frozen section tissue in 10A. ?The remaining tissue to include bone submitted in 10B. Specimen 11 received fresh for frozen section diagnosis labeled "right lip margin" is a 1.2 x 0.3 x 0.3 cm portion of morrow-pink skin and subcutaneous soft tissue. ?Ink code: Alison. ?The specimen is entirely submitted for frozen section diagnosis (FS 11A) with residual frozen section tissue in 11A. Specimen 12 received fresh for frozen section diagnosis labeled "right nasal floor #2" is a 1.1 x 0.6 x 0.5 cm red-morrow to morrow-pink soft tissue. ?Ink code: Yellow. ?The specimen is entirely submitted for frozen section diagnosis (FS 12A) with residual frozen section tissue in 12A. Specimen 13 received fresh for frozen section diagnosis labeled "right nasal sill #2" is a 0.6 x 0.4 x 0.4 cm morrow-pink soft tissue. ?Ink code: Blue. ?The specimen is entirely submitted for frozen section diagnosis (FS 13A) with residual frozen section tissue in 13A. Specimen 14 "nose and lip" is an irregularly shaped excision of skin and subcutaneous soft tissue, 4.2 x 3.0 cm and excised to a depth of 0.5 cm. ?The specimen is oriented: Suture inferior. ?Ink code: Superior right-black, inferior right-blue, superior left-orange, inferior left-green, inner, inner aspect of the right margin-over inked red. The skin surface displays a red-morrow to white-morrow, ill-defined, exophytic and granular lesion, 3.0 x 2.0 x 0.3 cm. ?The lesion comes within 0.1 cm of the superior right, inferior right and superior left margins and comes within 1.0 cm of the inferior left margin. ?The lesion displays a white-morrow to morrow-pink, ill-defined cut surface with a depth of invasion of 1.0 cm and abuts the inferior right resection margin. The uninvolved skin is morrow-pink, wrinkled and hairbearing. ? The remaining cut surfaces are morrow-pink and homogenous with interspersed cartilage. The specimen is entirely submitted sequentially from right to left in 14A-14J. Also received is a detached portion of skin and subcutaneous soft tissue, 2.0 x 1.1 cm, excised to depth of 0.3 cm. ?The skin surface is morrow-pink, wrinkled and hairbearing. ?The surgical resection margin is inked black. ?Cut surfaces are morrow-pink, homogenous soft tissue with interspersed cartilage. ?This tissue is entirely submitted in 14K 14M with terminal and submitted in 14K. [facility] 11:23 Microscopic Description (test code = 9271972) A microscopic examination has been performed and the findings are incorporated in the diagnosis above. The positive and negative controls for all histochemical and immunohistochemical stains, if performed for this case, have been reviewed and, unless otherwise noted, have been found to be appropriate. Non Clinical Documentation (test code = 2700002) 03752 x 13, 96609 x 14 Specimen examined at [facility].Final diagnosis rendered at [facility].[address] [place], [place] ?[address] [facility] [id number] 23:00:00* Test Item Value Reference Range Interpretation Comme nts CLINICAL INFORMATION (test code = 02685-4) SEE NOTE Nonhealing skin lesion of nose, left nasal vestibule lesion, irregularly shaped for the last 2 months, raised PATHOLOGIST (test code = 72765-2) SEE NOTE Zuleyma Matias M.D.,Board Certified in Anatomic Pathology, [phone] (electronic signature) Source (test code = 93203-1) SEE NOTE NOSE A PROCEDURE (test code = 12457-8) SEE NOTE Biopsy A GROSS DESCRIPTION (test code = 89171-2) SEE NOTE Specimen is rece ived in formalin, labeled with the patient's name, accession number, and "Lt nasal lesion biopsy". It consists of multiple irregular morrow-rivero soft tissue fragments measuring 0.8 x 0.5 x 0.2 cm in aggregate. ?TS, one cassette. ?Gross exam(s) performed at: [facility] ?[address] [place] [phone] ?[employer]: THEO GALVAN MD,PHD A MICRO DESCRIPTION (test code = 51595-9) SEE NOTE Examination reve als extensive epidermal dyskeratosis with overlying hyperkeratosis and parakeratosis. Emanating from the epidermis into the dermis are multiple cords and nests of acantholytic round to polygonal cells with eosinophilic cytoplasm and enlarged, hyperchromatic nuclei. Prominent nucleoli are present, and occasional mitotic figures are seen. Scattered lymphocytes and fibrosis are associated with the tumor nests. No evidence of perineural or vascular invasion is identified. Carcinoma extends to biopsy edges. 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 ?Site ID: [id number] ? ?Name: [facility] ? ?Address: [address] [place] [id number] ? ?Director: GAYATRI Perez [facility] [id number] 23:00:00* Test Item Value Reference Range Interpretation Comme nts CLINICAL INFORMATION (test code = 95803-8) SEE NOTE Nonhealing skin lesion of nose, left nasal vestibule lesion, irregularly shaped for the last 2 months, raised PATHOLOGIST (test code = 10218-7) SEE NOTE Zuleyma Matias M.D.,Board Certified in Anatomic Pathology, [phone] (electronic signature) Source (test code = 44398-1) SEE NOTE NOSE A PROCEDURE (test code = 22470-5) SEE NOTE Biopsy A GROSS DESCRIPTION (test code = 60125-7) SEE NOTE Specimen is rece ived in formalin, labeled with the patient's name, accession number, and "Lt nasal lesion biopsy". It consists of multiple irregular morrow-rivero soft tissue fragments measuring 0.8 x 0.5 x 0.2 cm in aggregate. ?TS, one cassette. ?Gross exam(s) performed at: [facility] ?[address] [place] [phone] ?[employer] Professor: THEO GALVAN MD,PHD A MICRO DESCRIPTION (test code = 79595-7) SEE NOTE Examination reve als extensive epidermal dyskeratosis with overlying hyperkeratosis and parakeratosis. Emanating from the epidermis into the dermis are multiple cords and nests of acantholytic round to polygonal cells with eosinophilic cytoplasm and enlarged, hyperchromatic nuclei. Prominent nucleoli are present, and occasional mitotic figures are seen. Scattered lymphocytes and fibrosis are associated with the tumor nests. No evidence of perineural or vascular invasion is identified. Carcinoma extends to biopsy edges. 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 ?Site ID: [id number] ? ?Name: [facility] ? ?Address: [address] [address] [place] [address] ? ?Director: [facility]
[2025-04-16] MEDS ORDERED: HYDROMORPHONE HCL 0.5 MG/0.5 ML INJ ONE (20:24)
[2025-04-16] MEDS ORDERED: KETOROLAC 30 MG/ML INJ ONE (20:24)
[2025-04-16] MEDS ORDERED: ONDANSETRON 4 MG/2 ML VIAL ONE (20:24)
[2025-04-16] MEDS ORDERED: NA CHLORIDE 0.9% 1,000 ML ONE (20:25)
[2025-04-16 20:47] LABS: Absolute Lymphocytes (CBC) 2.6 K/uL (0.7-4.9); Hematocrit 41.4 % (36.0-45.0); Hemoglobin 13.8 g/dL (12.0-15.0); MCH 30.0 pg (27.0-35.0); MCHC 33.3 g/dL (32.0-36.0); MCV 90.1 fL (80-100); MPV 8.0 fL (7.6-11.3); Nucleated RBC Absolute Count 0.0 (0-0); Nucleated Red Blood Cells % 0.0 % (0-0); RBC Red Blood Cell Count 4.60 M/uL (3.86-4.86); White Blood Count 7.50 thou/uL (4.3-10.9)
[2025-04-16 20:48] LABS: ALT/SGPT 21.0 U/L (13-56); AST/SGOT 13.0 U/L (15-37); Albumin 4.1 g/dL (3.4-5.0); Albumin/Globulin Ratio 1.2 (1.1-1.8); Alkaline Phosphatase 93.0 U/L (45-117); Anion Gap 8.0 mEq/L (5.0-15.0); BUN Blood Urea Nitrogen 15.0 mg/dL (7-18); Globulin 3.5 g/dL (2.3-3.5); Glucose Level 102.0 mg/dL (74-106); Lipase 21.0 U/L (13-75); Potassium 4.0 mEq/L (3.5-5.1)
--- NOTE | 2025-04-16 22:28 | RAD REPORT ---
EXAMINATION: CT Abdomen Pelvis W Contrast CLINICAL INDICATION: Female, 59 years old. ABD PAIN TECHNIQUE: CT abdomen and pelvis was performed, after the administration of IV contrast, as per [facility]. Axial, sagittal and coronal reconstructions were obtained. One or more of the following dose reduction techniques were used: Automated exposure control, adjustment of the mA and k V according to patient size, and iterative reconstruction. Unless otherwise specified, incidental findings do not require dedicated imaging follow-up. COMPARISON: No prior exam. FINDINGS: LOWER CHEST: The visualized lung bases are clear. LIVER: Normal in size and contour. 1.6 cm anterior right lobe subcapsular cyst, benign in appearance No focal lesion. BILIARY SYSTEM: No suspicious abnormalities. SPLEEN: Normal size. No focal lesion. PANCREAS: No mass, ductal dilation, or bob-pancreatic fluid. ADRENALS: Normal; no mass. KIDNEYS: Normal size and contour. Mild left hydroureteronephrosis. 6-7 mm calculus at the proximal le ft ureter. Motion artifact at the level of the stone somewhat limits evaluation. No right calculi or hydroureteronephrosis. URINARY BLADDER: Unremarkable. GASTROINTESTINAL TRACT: No evidence of free air, significant intra-abdominal free fluid, bowel obstru ction or abscess. APPENDIX: Normal appendix. LYMPH NODES: No lymphadenopathy. MUSCULOSKELETAL: No acute or suspicious osseous abnormality. ADDITIONAL FINDINGS: Prominence of the pelvic venous plexus. IMPRESSION: Mild left hydroureteronephrosis without obstructing 6-7 mm proximal left ureteric calculus. Other incidental findings as above. THIS REPORT CONTAINS FINDINGS THAT MAY BE CRITICAL TO PATIENT CARE. The findings were verbally commun icated via telephone to Slick Everett MD on 04/16/2025 10: 22 PM.
[2025-04-16 22:49] LABS: Sqamous Epithelial <5 /HPF (None Seen); Urine Crystals Unidentified Few /HPF (None Seen); Urine Culture Reflex Order REFLEXED; Urine Microscopic Reflex YN ORDER UMIC; Urine WBC Clump Rare /HPF (None Seen); Urine Yeast (Budding) Occasional /HPF (None Seen)
[2025-04-16] MEDS ORDERED: ACETAMINOPHEN 500 MG TAB ONE (23:34)
[2025-04-16] MEDS ORDERED: CEFTRIAXONE 1000 MG/VIAL ONE (23:34)
[2025-04-16] MEDS ORDERED: NA CHLORIDE 0.9% 50 ML ONE (23:34)
--- NOTE | 2025-04-16 23:34 | ER ---
Nurse's Notes [facility] [place] Name: Justine Wolf Age: 59 yrs Sex: Female : 1965 Arrival Date: 04/16/2025 Time: 19:43 Bed 27 Private MD: Diagnosis: Calculus of ureter;LEFT FLANK PAIN Presentation: 04/16 20:00 Chief complaint: Patient states: LT LOWER BACK, LT FLANK AND LT LOWER STOMACH PAIN THAT dd2 BEGAN ON SUNDAY, WORSE TODAY. PT ALSO REPORTS DIFFICULTY URINATING THAT BEGAN TODAY. Coronavirus screen: At this time, the client does not indicate any symptoms associated with coronavirus-19. Ebola Screen: No symptoms or risks identified at this time. Initial Sepsis Screen: Does the patient meet any 2 criteria? No. Patient's initial sepsis screen is negative. Does the patient have a suspected source of infection? No. Patient's initial sepsis screen is negative. Risk Assessment: Do you want to hurt yourself or someone else? Patient reports no desire to harm self or others. Onset of symptoms was April 14, 2025. 20:00 Method Of Arrival: Ambulatory dd2 20:00 Acuity: LATESHA 3 dd2 Triage Assessment: 20:02 General: Appears in no apparent distress. uncomfortable, Behavior is calm, cooperative, dd2 appropriate for age. Pain: Complains of pain in left low back, posterior aspect of left lateral abdomen and left lower quadrant. : Reports inability to void, pain in left flank(s), lower quadrant(s) in lower back. Musculoskeletal: Circulation, motion, and sensation intact. Range of motion: intact in all extremities. Historical: - Allergies: 20:02 Codeine; dd2 20:02 PENICILLINS; dd2 - PMHx: 20:02 skin cancer; dd2 - PSHx: 20:02 RECONSTRUCTIVE LEFT ARM SX; RECONSTUCTIVE FACIAL SX; dd2 - Immunization history:: Adult Immunizations unknown. - Infectious Disease History:: Denies. - Social history:: Smoking status: Patient reports the use of cigarette tobacco products, smokes one pack cigarettes per day. Screenin:31 [facility] ED Fall Risk Assessment (Adult) History of falling in the last 3 months, rg5 including since admission No falls in past 3 months (0 pts) Confusion or Disorientation No (0 pts) Intoxicated or Sedated No (0 pts) Impaired Gait No (0 pts) Mobility Assist Device Used No (0 pt) Altered Elimination No (0 pt) Score/Fall Risk Level 0 - 2 = Low Risk Oriented to surroundings, Maintained a safe environment. Abuse screen: Denies threats or abuse. Nutritional screening: No deficits noted. Tuberculosis screening: No symptoms or risk factors identified. Assessment: 20:31 General: Appears uncomfortable, Behavior is calm, cooperative, appropriate for age. rg5 Pain: Complains of pain in anterior aspect of left lateral abdomen Pain currently is 6 out of 10 on a pain scale. Quality of pain is described as aching. Neuro: Level of Consciousness is awake, alert, obeys commands, Oriented to person, place, time, situation. Cardiovascular: Patient's skin is warm and dry. Respiratory: Airway is patent Trachea midline Respiratory effort is even, unlabored, Respiratory pattern is regular, symmetrical. GI: Reports upper abdominal pain, nausea. : Reports urinary frequency. EENT: EENT: No signs and/or symptoms were reported regarding the EENT system. Derm: Skin is intact, Skin is dry, Skin is normal, Skin temperature is warm. Musculoskeletal: Circulation, motion, and sensation intact. Range of motion: intact in all extremities. 21:29 Reassessment: No changes from previously documented assessment. Patient and/or family rg5 updated on plan of care and expected duration. Pain level reassessed. Patient is alert, oriented x 3, equal unlabored respirations, skin warm/dry/pink. 22:43 Reassessment: Patient and/or family updated on plan of care and expected duration. Pain rg5 level reassessed. Patient is alert, oriented x 3, equal unlabored respirations, skin warm/dry/pink. Vital Signs: 20:00 BP 117 / 78; Pulse 78; Resp 17; Temp 98.6; Pulse Ox 100% ; Weight 55.34 kg (M); Pain dd2 10/10; 20:47 BP 136 / 108; Pulse 74; Resp 18; Pulse Ox 100% ; rg5 21:29 BP 110 / 77; Pulse 66; Resp 18; Pulse Ox 99% ; rg5 22:42 BP 119 / 74; Pulse 57; Resp 18; Pulse Ox 99% ; Pain 6/10; rg5 20:00 Pain Scale: Adult dd2 22:42 Pain Scale: Adult rg5 ED Course: 19:48 Patient arrived in ED. cj3 20:00 Slick Everett DO is Attending Physician. tt7 20:02 Triage completed. dd2 20:02 Arm band placed on right wrist. dd2 20:19 Benson Leong, RN is Primary Nurse. rg5 20:24 Radiology exam delayed due to lab results not completed at this time. (BUN/Creatinine) nj IV insertion attempt and/or patient not having appropriate IV at this time. 20:31 Patient has correct armband on for positive identification. Bed in low position. Call rg5 light in reach. Side rails up X 1. Door closed. Noise minimized. 20:31 No provider procedures requiring assistance completed. Inserted saline lock: 20 gauge rg5 in right antecubital area, using aseptic technique. Blood collected. Flushed with 10 mL NS. Patient maintains SpO2 saturation greater than 95% on room air. 21:20 CT Abd/Pelvis - IV Contrast Only In Process Unspecified. EDMS 23:31 Ozzy Cadena MD is Referral Physician. tt7 23:46 IV discontinued, bleeding controlled, No redness/swelling at site. Pressure dressing rg5 applied. Administered Medications: 20:29 Drug: Ondansetron IVP 4 mg IVP once; over 2 minutes Route: IVP; Site: right antecubital;rg5 21:55 Follow up: Response: No adverse reaction rg5 20:30 Drug: TORadol - Ketorolac IVP 15 mg IVP once Route: IVP; Site: right antecubital; rg5 21:56 Follow up: Response: No adverse reaction; Pain is decreased rg5 20:30 Drug: HYDROmorphone IVP 0.5 mg IVP once Route: IVP; Site: right antecubital; rg5 21:55 Follow up: Response: No adverse reaction; Pain is decreased rg5 20:30 Drug: NS 0.9% IV 1000 ml IV at 1 bolus Per protocol; to be given as a bolus over 60 rg5 minutes Route: IV; Rate: 1 bolus; Site: right antecubital; 22:42 Follow up: IV Status: Completed infusion; IV Intake: 1000ml rg5 23:39 Drug: Rocephin IV 1 grams IV at bolus once; Given slow IV push per pharmacy rg5 instructions Route: IV; Rate: bolus; Site: right antecubital; 23:47 Follow up: IV Status: Completed infusion; IV Intake: 50ml rg5 23:40 Drug: Acetaminophen PO 1000 mg PO once Route: PO; rg5 23:47 Follow up: Response: No adverse reaction rg5 Medication: 20:31 VIS not applicable for this client. rg5 Intake: 22:42 IV: 1000ml; Total: 1000ml. rg5 23:47 IV: 50ml; Total: 1050ml. rg5 Outcome: 23:33 Discharge ordered by . tt7 23:46 Discharged to home ambulatory, rg5 23:46 Condition: stable 23:46 Discharge instructions given to patient, Instructed on discharge instructions, Demonstrated understanding of instructions, Prescriptions given X 1, 23:47 Patient left the ED. rg5 Signatures: Dispatcher [employer] EDMS Orestes Lyle Rommel RN RN rg5 NICOLAS OROURKE RN RN dd2 Elayne Sifuentes cj3 Slick Everett, DO tt7
--- NOTE | 2025-04-16 23:34 | EDPHYS ---
Physician Documentation [facility] Name: Justine Wolf Age: 59 yrs Sex: Female : 1965 Arrival Date: 04/16/2025 Time: 19:43 Bed 27 Private MD: ED Physician Slick Everett HPI: 04/16 20:59 This 59 yrs old Female presents to ER via Ambulatory with complaints of Flank Pain, tt7 Back Pain. 20:59 The patient complains of pain in the left lower quadrant and posterior aspect of left tt7 lateral abdomen. The pain radiates to the left mid back. Onset: The symptoms/episode began/occurred 2 day(s) ago, and became worse today. Modifying factors: The symptoms are alleviated by nothing. the symptoms are aggravated by nothing. Associated signs and symptoms: Pertinent positives: nausea. Severity of pain: At its worst the pain was moderate in the emergency department the pain is unchanged. The patient has experienced a previous episode. Historical: - Allergies: 20:02 Codeine; dd2 20:02 PENICILLINS; dd2 - PMHx: 20:02 skin cancer; dd2 - PSHx: 20:02 RECONSTRUCTIVE LEFT ARM SX; RECONSTUCTIVE FACIAL SX; dd2 - Immunization history:: Adult Immunizations unknown. - Infectious Disease History:: Denies. - Social history:: Smoking status: Patient reports the use of cigarette tobacco products, smokes one pack cigarettes per day. ROS: 20:56 Constitutional: negative for fever. Cardiovascular: negative for chest pain. tt7 Respiratory: negative for shortness of breath. MS/Extremity: negative for injury and deformity. Skin: negative for rash. Neuro: negative for focal weakness. 20:56 Abdomen/GI: Positive for abdominal pain, nausea, Exam: 20:56 Constitutional: vital signs reviewed, well appearing. Head/Face: normocephalic, tt7 atraumatic. Eyes: no conjunctival injection, anicteric sclerae. ENT: mucus membranes moist. Neck: trachea midline, no JVD, no meningismus. Chest/axilla: normal chest wall appearance and motion, nontender, no crepitus. Cardiovascular: regular rate and rhythm, no murmurs, no rubs, no lower extremity edema. Respiratory: normal respiratory effort, no accessory muscle use, lungs CTAB. Abdomen/GI: soft, nondistended, moderate left lower quadrant tenderness with left CVA tenderness, no guarding or rebound, negative Farris's sign, no McBurney point tenderness. Back: normal ROM. Skin: warm, dry, intact, normal turgor, normal color, no rash. MS/ Extremity: normal ROM of extremities, no gross deformities. Neuro: alert and oriented with appropriate mental status, normal speech, follows commands, no focal neurologic deficits. Psych: appropriate mood and affect. Vital Signs: 20:00 BP 117 / 78; Pulse 78; Resp 17; Temp 98.6; Pulse Ox 100% ; Weight 55.34 kg (M); Pain dd2 10; 20:47 BP 136 / 108; Pulse 74; Resp 18; Pulse Ox 100% ; rg5 21:29 BP 110 / 77; Pulse 66; Resp 18; Pulse Ox 99% ; rg5 22:42 BP 119 / 74; Pulse 57; Resp 18; Pulse Ox 99% ; Pain 6/10; rg5 20:00 Pain Scale: Adult dd2 22:42 Pain Scale: Adult rg5 MDM: 20:00 Medical Screening Exam initiated tt7 20:57 Differential diagnosis: nephrolithiasis, pyelonephritis, UTI, diverticulitis, tt7 pancreatitis. Data reviewed: vital signs, nurses notes, lab test result(s), radiologic studies. ED course: Well-appearing patient with stable vital signs presents with left-sided abdominal pain radiating to the flank, I am most suspicious for left-sided ureterolithiasis versus pyelonephritis, laboratory studies, urinalysis, and CT imaging of the abdomen/pelvis have been ordered, will treat the patient's symptoms with IV Toradol, IV Zofran, and IV Dilaudid. 04/17 05:33 ED course: Renal function is normal, CT imaging shows left-sided 6 to 7 mm proximal tt7 ureteral stone, no CT findings of pyelonephritis or ureteritis, there is mild hydroureter, urinalysis shows a significant number of white blood cells, no definitive bacteria or infection concerning for proximal infection, patient's vital signs are stable and she is afebrile, white blood cells are likely inflammatory and not infectious but out of abundance of caution we will administer 1 g of IV ceftriaxone and treat with 7-day course of ciprofloxacin, I discussed the results of the workup with the patient and need for close outpatient follow-up, return precautions discussed, patient provided with urology follow-up, she was discharged in stable condition. 04/16 20:13 Order name: CBC with Diff; Complete Time: 22:31 tt7 04/16 20:13 Order name: CMP; Complete Time: 22:31 tt7 04/16 20:13 Order name: Lipase; Complete Time: 22:31 tt7 04/16 20:13 Order name: UA Rfx Vidal Cult if indicated; Complete Time: 22:55 tt7 04/16 22:54 Order name: Urine Culture EDMS 04/16 20:13 Order name: CT Abd/Pelvis - IV Contrast Only; Complete Time: 22:31 tt7 04/16 20:13 Order name: IV Saline Lock; Complete Time: 20:30 tt7 04/16 20:13 Order name: Labs collected and sent; Complete Time: 20:30 tt7 Administered Medications: 04/16 20:29 Drug: Ondansetron IVP 4 mg IVP once; over 2 minutes Route: IVP; Site: right antecubital;rg5 21:55 Follow up: Response: No adverse reaction rg5 20:30 Drug: TORadol - Ketorolac IVP 15 mg IVP once Route: IVP; Site: right antecubital; rg5 21:56 Follow up: Response: No adverse reaction; Pain is decreased rg5 20:30 Drug: HYDROmorphone IVP 0.5 mg IVP once Route: IVP; Site: right antecubital; rg5 21:55 Follow up: Response: No adverse reaction; Pain is decreased rg5 20:30 Drug: NS 0.9% IV 1000 ml IV at 1 bolus Per protocol; to be given as a bolus over 60 rg5 minutes Route: IV; Rate: 1 bolus; Site: right antecubital; 22:42 Follow up: IV Status: Completed infusion; IV Intake: 1000ml rg5 23:39 Drug: Rocephin IV 1 grams IV at bolus once; Given slow IV push per pharmacy rg5 instructions Route: IV; Rate: bolus; Site: right antecubital; 23:47 Follow up: IV Status: Completed infusion; IV Intake: 50ml rg5 23:40 Drug: Acetaminophen PO 1000 mg PO once Route: PO; rg5 23:47 Follow up: Response: No adverse reaction rg5 Disposition: 04/17 05:35 Co-signature as Attending Physician, Slick Everett DO. tt7 Disposition Summary: 04/16/25 23:33 Discharge Ordered Notes: Location: Home tt7 Problem: new tt7 Symptoms: have improved tt7 Condition: Stable tt7 Diagnosis - Calculus of ureter tt7 - LEFT FLANK PAIN tt7 Followup: tt7 - With: Emergency Department - When: As needed - Reason: Followup: tt7 - With: Ozzy Cadena MD - When: 1 - 2 days - Reason: Recheck today's complaints Discharge Instructions: - Discharge Summary Sheet tt7 - Kidney Stones, [id number] tt7 Forms: - Work release form rg5 - Medication Reconciliation Form tt7 - Antibiotic Education tt7 - Prescription Opioid Use tt7 - Patient Portal Instructions tt7 - Leadership Thank You Letter tt7 Prescriptions: - Cipro 500 mg Oral tablet - take 1 tablet ORAL route every 12 hours for 7 days; 14 tablet; Refills: 0, tt7 Product Selection Permitted Signatures: Dispatcher [employer] EDBenson Cash RN RN rg5 NICOLAS OROURKE RN RN dd2 Slick Everett DO DO tt7 Corrections: (The following items were deleted from the chart) 04/16 20:14 20:14 CBC+H.LAB.BRZ ordered. EDMS EDMS 20:14 20:14 COMPREHENSIVE METABOLIC PANEL+C.LAB.BRZ ordered. EDMS EDMS 20:14 20:14 LIPASE+C.LAB.BRZ ordered. EDMS EDMS 20:14 20:14 UA Rfx Vidal Cult if indicated+U.LAB.BRZ ordered. EDMS EDMS 20:14 20:14 Abdomen Pelvis W Con+CT.RAD.BRZ ordered. EDMS EDMS
[2025-04-16 23:52] VITALS: TEMP 98.6
[2025-04-16 23:55] VITALS: O2SAT 99
[2025-04-16 23:57] VITALS: BP 119/74
== END 2025-04-16 23:47 | disposition home or self-care (01) ==
LOC: ER 19:43
DX: N20.1 Calculus of ureter (principal); F17.210 Nicotine dependence, cigarettes, uncomplicated
CPT/HCPCS: 96361; 87088; 85025; 81001; 87086; 36415; 83690; 80053; 74177; 96375; 96374; 99284; Q9967; J1885; J1171; J2405; J7030; J0696